=== PATIENT | male | born 1975 | race Asian ===

== ENCOUNTER 2018-07-18 12:17 | Emergency (ER) | payer OTHER ==
[~2018-07-18] VITALS: Ht 182.9 cm; Wt 68.0 kg
[2018-07-18 12:19] VITALS: BP_SYST 132
[2018-07-18 13:02] VITALS: BP_SYST 129
== END 2018-07-18 13:02 | disposition home or self-care (01) ==
LOC: SED 12:17
DX: S61.211A Laceration without foreign body of left index finger without damage to nail, initial encounter (principal); R03.0 Elevated blood-pressure reading, without diagnosis of hypertension; W26.8XXA Contact with other sharp object(s), not elsewhere classified, initial encounter; Y93.89 Activity, other specified; Y92.009 Unspecified place in unspecified non-institutional (private) residence as the place of occurrence of the external cause; Y99.8 Other external cause status
CPT/HCPCS: 99283